=== PATIENT | female | born 1985 ===

== ENCOUNTER 2017-09-22 15:35 | Emergency (ER) | payer SELFPAY ==
[2017-09-22 16:13] LABS: Bilirubin Negative (Negative); Blood, Urine Moderate (Negative); Glucose, Urine (Dipstick) Negative (Negative); Ketone, Urine Negative (Negative); Nitrite Negative (Negative); Protein, Urine (Dipstick) Negative (Neg-Trace); Urobilinogen 0.2 mg/dL (0.2-1.0)
[2017-09-22 16:15] LABS: Bacteria/HPF Rare-Few HPF (None Seen); Hyaline Casts/LPF 0-3 HYALINE CAST LPF (0-3 Hyaline); Squamous Epithelial 0-3 HPF (0-3)
== END 2017-09-22 16:47 | disposition home or self-care (01) ==
LOC: ERS 15:35
DX: N39.0 Urinary tract infection, site not specified (principal); J45.909 Unspecified asthma, uncomplicated
CPT/HCPCS: 81003; 81015; 87077; 87086; 87186; 99284